=== PATIENT | female | born 1935 ===

== ENCOUNTER → 2018-08-14 19:13 | Outpatient (REF) | payer MEDICARE, MEDICAID, SELFPAY ==
[2018-08-14 19:36] LABS: INR 4.2 (0.9-1.3); Prothrombin Time 46.8 SECONDS (10.1-12.7)
== END ==
LOC: LAB 19:13
PROVIDERS: Visit Provider Internal Medicine Geriatric Medicine
DX: I26.99 Other pulmonary embolism without acute cor pulmonale (principal)
CPT/HCPCS: 85610

== ENCOUNTER → 2018-08-26 13:33 | Outpatient (REF) | payer MEDICARE, MEDICAID, SELFPAY ==
[2018-08-26 14:04] LABS: INR 3.4 (0.9-1.3); Prothrombin Time 38.1 SECONDS (10.1-12.7)
== END ==
LOC: LAB 13:33
PROVIDERS: Visit Provider Internal Medicine Geriatric Medicine
DX: I26.99 Other pulmonary embolism without acute cor pulmonale (principal)
CPT/HCPCS: 36415; 85610

== ENCOUNTER → 2018-09-09 14:39 | Outpatient (REF) | payer MEDICARE, MEDICAID, SELFPAY ==
[2018-09-09 15:00] LABS: Prothrombin Time 33.3 SECONDS (10.1-12.7)
== END ==
LOC: LAB 14:39
PROVIDERS: Visit Provider Internal Medicine Geriatric Medicine
DX: Z51.81 Encounter for therapeutic drug level monitoring (principal)
CPT/HCPCS: 85610

== ENCOUNTER → 2018-09-23 12:22 | Outpatient (REF) | payer MEDICARE, MEDICAID, SELFPAY ==
[2018-09-23 12:46] LABS: INR 2.9 (0.9-1.3); Prothrombin Time 32.7 SECONDS (10.1-12.7)
== END ==
LOC: LAB 12:22
PROVIDERS: Visit Provider Internal Medicine Geriatric Medicine
DX: Z51.81 Encounter for therapeutic drug level monitoring (principal)
CPT/HCPCS: 85610

== ENCOUNTER → 2018-10-07 13:56 | Outpatient (REF) | payer MEDICARE, MEDICAID, SELFPAY ==
[2018-10-07 15:17] LABS: Prothrombin Time 65.2 SECONDS (10.1-12.7)
[2018-10-07 15:26] LABS: INR 5.8 (0.9-1.3)
== END ==
LOC: LAB 13:56
PROVIDERS: Visit Provider Internal Medicine Geriatric Medicine
DX: Z51.81 Encounter for therapeutic drug level monitoring (principal)
CPT/HCPCS: 85610

== ENCOUNTER → 2018-10-14 13:31 | Outpatient (REF) | payer MEDICARE, MEDICAID, SELFPAY ==
[2018-10-14 13:45] LABS: Prothrombin Time 32.8 SECONDS (10.1-12.7)
== END ==
LOC: LAB 13:31
PROVIDERS: Internal Medicine Geriatric Medicine
DX: Z51.81 Encounter for therapeutic drug level monitoring (principal)
CPT/HCPCS: 85610

== ENCOUNTER → 2018-10-21 13:53 | Outpatient (REF) | payer MEDICARE, MEDICAID, SELFPAY ==
[2018-10-21 14:10] LABS: INR 3.1 (0.9-1.3)
== END ==
LOC: LAB 13:53
PROVIDERS: Visit Provider Internal Medicine Geriatric Medicine
DX: I26.99 Other pulmonary embolism without acute cor pulmonale (principal)
CPT/HCPCS: 36415; 85610

== ENCOUNTER → 2018-10-28 12:05 | Outpatient (REF) | payer MEDICARE, MEDICAID, SELFPAY ==
[2018-10-28 12:29] LABS: INR 2.4 (0.9-1.3)
== END ==
LOC: LAB 12:05
PROVIDERS: Visit Provider Internal Medicine Geriatric Medicine
DX: Z51.81 Encounter for therapeutic drug level monitoring (principal)
CPT/HCPCS: 36415; 85610

== ENCOUNTER → 2018-11-12 20:06 | Outpatient (REF) | payer MEDICARE, MEDICAID, SELFPAY ==
[2018-11-12 20:36] LABS: Prothrombin Time 57.9 SECONDS (10.1-12.7)
[2018-11-12 20:50] LABS: INR 4.9 (0.9-1.3)
== END ==
LOC: LAB 20:06
PROVIDERS: Visit Provider Internal Medicine Geriatric Medicine
DX: I26.99 Other pulmonary embolism without acute cor pulmonale (principal)
CPT/HCPCS: 36415; 85610

== ENCOUNTER → 2018-11-25 13:39 | Outpatient (REF) | payer MEDICARE, MEDICAID, SELFPAY ==
[2018-11-25 14:33] LABS: INR 3.1 (0.9-1.3); Prothrombin Time 36.3 SECONDS (10.1-12.7)
== END ==
LOC: LAB 13:39
PROVIDERS: Visit Provider Nurse Practitioner Family
DX: Z51.81 Encounter for therapeutic drug level monitoring (principal)
CPT/HCPCS: 36415; 85610

== ENCOUNTER → 2018-12-04 14:06 | Outpatient (REF) | payer MEDICARE, MEDICAID, SELFPAY ==
[2018-12-04 14:57] LABS: INR 2.4 (0.9-1.3); Prothrombin Time 27.8 SECONDS (10.1-12.7)
== END ==
LOC: LAB 14:06
PROVIDERS: Visit Provider Internal Medicine Geriatric Medicine
DX: Z79.01 Long term (current) use of anticoagulants (principal)
CPT/HCPCS: 36415; 85610

== ENCOUNTER → 2018-12-11 13:43 | Outpatient (REF) | payer MEDICARE, MEDICAID, SELFPAY ==
[2018-12-11 13:54] LABS: Add Manual Diff / Slide Review NO; Basophils Absolute Auto 0 /uL (0-100); Basophils Percent Auto 0.5 % (0-2); Eosinophils Absolute Auto 300 /uL (0-450); Eosinophils Percent Auto 5.2 % (2-4); Hematocrit 36.8 % (36-46); Hemoglobin 12.1 g/dL (12.0-16.0); Lymphocytes Absolute Auto 2000 /uL (1100-4500); Lymphocytes Percent Auto 34.4 % (25-40); Mean Corpuscular HGB Conc 32.8 % (30-36); Mean Corpuscular Hemoglobin 31.6 PG (26-34); Mean Corpuscular Volume 96.2 fL (80-100); Monocytes Absolute Auto 500 /uL (0-900); Neutrophils Absolute Auto 3000 /uL (1500-7000); Neutrophils Percent Auto 50.9 % (50-75); Platelet Count 188 X10^3/uL (150-400); Red Blood Cell Count 3.82 X10^6/uL (4.0-5.2); Red Cell Distribution Width 15.2 % (11.6-14.8); White Blood Cell Count 5.9 X10^3/uL (4.5-11.0)
[2018-12-11 14:07] LABS: Erythrocyte Sedimentation Rate 34 MM/HR (0-20)
[2018-12-11 14:24] LABS: BUN Creatinine Ratio 15.7 (6-22); Blood Urea Nitrogen 22 mg/dL (7-17); Calcium 8.9 mg/dL (8.4-10.2); Carbon Dioxide 29 mmol/L (22-32); Chloride 101 mmol/L (98-107); Estimated Glomerular Filt Rate 35.9 mL/min (>60); Glucose 90 mg/dL (80-110); HEMOLYSIS 22 (0-50); Potassium 4.2 mmol/L (3.4-5.1); Sodium 138 mmol/L (137-145); Uric Acid 3.8 mg/dL (2.5-6.2)
[2018-12-11 14:26] LABS: C-Reactive Protein Quant < 0.5 mg/dL (<1.0); Rheumatoid Factor < 8.6 IU/mL (<12.0)
== END ==
LOC: LAB 13:43
PROVIDERS: Visit Provider Internal Medicine Geriatric Medicine
DX: N18.4 Chronic kidney disease, stage 4 (severe) (principal); M10.9 Gout, unspecified; R60.9 Edema, unspecified; G89.29 Other chronic pain; G60.8 Other hereditary and idiopathic neuropathies
CPT/HCPCS: 36415; 80048; 84550; 85025; 85651; 86140; 86430

== ENCOUNTER → 2018-12-23 13:29 | Outpatient (REF) | payer MEDICARE, MEDICAID, SELFPAY ==
[2018-12-23 14:21] LABS: INR 1.7 (0.9-1.3); Prothrombin Time 19.2 SECONDS (10.1-12.7)
== END ==
LOC: LAB 13:29
PROVIDERS: Visit Provider Internal Medicine Geriatric Medicine
DX: Z51.81 Encounter for therapeutic drug level monitoring (principal)
CPT/HCPCS: 36415; 85610

== ENCOUNTER → 2019-01-06 13:28 | Outpatient (REF) | payer MEDICARE, MEDICAID, SELFPAY ==
[2019-01-06 13:49] LABS: INR 3.1 (0.9-1.3); Prothrombin Time 36.7 SECONDS (10.1-12.7)
== END ==
LOC: LAB 13:28
PROVIDERS: Visit Provider Internal Medicine Geriatric Medicine
DX: Z51.81 Encounter for therapeutic drug level monitoring (principal)
CPT/HCPCS: 36415; 85610

== ENCOUNTER → 2019-01-20 13:18 | Outpatient (REF) | payer MEDICARE, MEDICAID, SELFPAY ==
[2019-01-20 13:50] LABS: INR 2.9 (0.9-1.3)
== END ==
LOC: LAB 13:18
PROVIDERS: Visit Provider Internal Medicine Geriatric Medicine
DX: Z51.81 Encounter for therapeutic drug level monitoring (principal)
CPT/HCPCS: 85610

== ENCOUNTER → 2019-02-11 13:47 | Outpatient (REF) | payer MEDICARE, MEDICAID, SELFPAY ==
[2019-02-11 14:53] LABS: INR 3.5 (0.9-1.3); Prothrombin Time 41.2 SECONDS (10.1-12.7)
== END ==
LOC: LAB 13:47
PROVIDERS: Visit Provider Internal Medicine Geriatric Medicine
DX: Z51.81 Encounter for therapeutic drug level monitoring (principal)
CPT/HCPCS: 85610

== ENCOUNTER → 2019-02-24 13:25 | Outpatient (REF) | payer MEDICARE, MEDICAID, SELFPAY ==
[2019-02-24 14:19] LABS: INR 2.9 (0.9-1.3); Prothrombin Time 33.7 SECONDS (10.1-12.7)
== END ==
LOC: LAB 13:25
PROVIDERS: Visit Provider Internal Medicine Geriatric Medicine
DX: I26.99 Other pulmonary embolism without acute cor pulmonale (principal)
CPT/HCPCS: 85610

== ENCOUNTER → 2019-03-05 14:31 | Outpatient (REF) | payer MEDICARE, MEDICAID, SELFPAY ==
[2019-03-05 14:42] LABS: INR 3.2 (0.9-1.3); Prothrombin Time 37.4 SECONDS (10.1-12.7)
== END ==
LOC: LAB 14:31
PROVIDERS: Visit Provider Internal Medicine Geriatric Medicine
DX: Z51.81 Encounter for therapeutic drug level monitoring (principal)
CPT/HCPCS: 36415; 85610

== ENCOUNTER → 2019-03-17 13:15 | Outpatient (REF) | payer MEDICARE, MEDICAID, SELFPAY ==
[2019-03-17 13:44] LABS: INR 3.5 (0.9-1.3); Prothrombin Time 42.1 SECONDS (10.1-12.7)
== END ==
LOC: LAB 13:15
PROVIDERS: Visit Provider Internal Medicine Geriatric Medicine
DX: Z51.81 Encounter for therapeutic drug level monitoring (principal)
CPT/HCPCS: 85610

== ENCOUNTER → 2019-03-31 13:54 | Outpatient (ROUT) | payer MEDICARE, MEDICAID, SELFPAY ==
[2019-03-31 14:09] LABS: INR 4.1 (0.9-1.3); Prothrombin Time 48.1 SECONDS (10.1-12.7)
== END ==
PROVIDERS: Visit Provider Internal Medicine Geriatric Medicine
DX: I26.99 Other pulmonary embolism without acute cor pulmonale (principal)
CPT/HCPCS: 36415; 85610

== ENCOUNTER → 2019-04-14 14:33 | Outpatient (ROUT) | payer MEDICARE, MEDICAID, SELFPAY ==
[2019-04-14 14:47] LABS: INR 3.2 (0.9-1.3); Prothrombin Time 37.4 SECONDS (10.1-12.7)
== END ==
PROVIDERS: Visit Provider Internal Medicine Geriatric Medicine
DX: I26.99 Other pulmonary embolism without acute cor pulmonale (principal)
CPT/HCPCS: 85610

== ENCOUNTER → 2019-04-28 13:35 | Outpatient (ROUT) | payer MEDICARE, MEDICAID, SELFPAY ==
[2019-04-28 13:53] LABS: INR 1.4 (0.9-1.3); Prothrombin Time 16.1 SECONDS (10.1-12.7)
== END ==
PROVIDERS: Visit Provider Internal Medicine Geriatric Medicine
DX: I26.99 Other pulmonary embolism without acute cor pulmonale (principal)
CPT/HCPCS: 36415; 85610